=== PATIENT | female | born 2000 | race Hispanic/Latino ===

== ENCOUNTER 2022-12-08 22:58 | Emergency (ER) | payer OTHER ==
[~2022-12-08] VITALS: Ht 152.4 cm; Wt 49.0 kg
[2022-12-09] MEDS ORDERED: PREDNISONE 20 MG TAB PO ONE
[2022-12-09] MEDS ORDERED: KETOROLAC TROMETHAMINE 60 MG/2 ML VIAL IM ONE
[2022-12-09] MEDS ORDERED: PREDNISONE 20 MG TAB ONE (00:10)
[2022-12-09] MEDS ORDERED: KETOROLAC TROMETHAMINE 30 MG/ML VIAL ONE (00:10)
[2022-12-09] MEDS ORDERED: ACETAMINOPHEN 325 MG TAB ONE (00:10)
[2022-12-09] MEDS ORDERED: PREDNISONE20 MG PO (00:32)
[2022-12-09] MEDS ORDERED: CYCLOBENZAPRINE5 MG PO (00:34)
[2022-12-09] MEDS ORDERED: TAMIFLU75 MG PO (00:35)
[2022-12-09 00:50] VITALS: BP 131/84
== END 2022-12-09 00:50 | disposition home or self-care (01) ==
LOC: FSED 23:02
DX: R50.9 Fever, unspecified (principal); J10.1 Influenza due to other identified influenza virus with other respiratory manifestations; M54.50 Low back pain, unspecified; M62.830 Muscle spasm of back
CPT/HCPCS: 81003; 81025; 87400; 96372; 99283; J1885; J7512